=== PATIENT | female | born 1950 | race Caucasian/White ===

== ENCOUNTER 2017-09-23 08:20 | Day surgery (SDC) | payer MEDICARE, BC ==
[2017-09-23] MEDS ORDERED: Midazolam 1 MG/ML 2 ML SDV ONE (08:59)
[2017-09-23] MEDS ORDERED: fentaNYL 100 MCG/2 ML SDV ONE (08:59)
[2017-09-23] MEDS ORDERED: Propofol 200 MG/20 ML SDV ONE (08:59)
[2017-09-23] MEDS ORDERED: Lactated Ringers 1,000 ML IV SCH (09:30)
--- NOTE | 2017-09-23 11:40 | OR ---
DATE OF PROCEDURE: 09/23/2017 PREOPERATIVE DIAGNOSIS: Colon cancer screening. POSTOPERATIVE DIAGNOSES: Diverticulosis, small angiodysplasia, hemorrhoids. PROCEDURE PERFORMED: Colonoscopy to the cecum. ANESTHESIA: IV anesthesia with monitored anesthesia care. INDICATION: This 67-year-old white female is referred for a colonoscopy. She says her last colonoscopic exam was done about 20 years ago. Additionally, she states she has noticed some blood in her stool. I counseled her for the procedure including risks and alternatives, and she gave her informed consent to proceed. DESCRIPTION OF PROCEDURE: The patient was placed in the left lateral decubitus position. IV anesthesia was administered by the Anesthesia Service. Time-out was held. A rectal exam was performed, which was unremarkable. The flexible video Olympus colonoscope was introduced through her anus, up her rectum, out her colon, all way to the cecum. En route, we saw a few scattered left-sided diverticula. There was no bleeding or inflammation associated with them. Also some small vascular lesions which were not bleeding. Once the cecum was reached, the scope was slowly withdrawn, examining the mucosa throughout. No additional mucosal abnormalities were noted. The scope was retroflexed in the rectum with the distal rectum showing some hemorrhoids; otherwise, unremarkable. The scope was straightened and removed. She tolerated the procedure well. Grzegorz Marcus MD /[id number]
== END 2017-09-23 11:50 | disposition home or self-care (01) ==
LOC: JP.SDS 08:20
PROVIDERS: ATTEND Surgery
DX: K92.1 Melena (principal); R10.30 Lower abdominal pain, unspecified; R19.4 Change in bowel habit; K57.30 Diverticulosis of large intestine without perforation or abscess without bleeding; K55.20 Angiodysplasia of colon without hemorrhage; K64.9 Unspecified hemorrhoids; J45.909 Unspecified asthma, uncomplicated; Z91.018 Allergy to other foods; Z88.7 Allergy status to serum and vaccine
CPT/HCPCS: 45378; J2250; J2704; J3010; J7120

== ENCOUNTER 2020-01-25 20:21 | Emergency (ER) | payer BC, MEDICARE ==
--- NOTE | 2020-01-25 21:06 | EDM.PDOC ---
ED HPI GENERAL MEDICAL PROBLEM - General Chief Complaint: Neurological Problem Stated Complaint: POSSIBLE STROKE Time Seen by Provider: 01/25/20 20:53 Source of Information: Reports: Patient, Family, RN Notes Reviewed History Limitations: Reports: No Limitations - History of Present Illness INITIAL COMMENTS - FREE TEXT/NARRATIVE: Anca presents today with complaints of feeling like she could not get her words out and make sense with wavy vision for 60 minutes at 1730. She states she went out to do her chores with her horses to see if it would get better. The sensation did not go away so she came to the emergency room. She states she did not take any medications for her symptoms. She denies fever, chills, nausea, vomiting, change in bowel/bladder or other concerns. Upon arrival to emergency room, symptoms resolved, no abnormal speech, vision or gait. NIH 0 denies pain Pain Score (Numeric/FACES): 0 - Related Data Allergies Allergy/AdvReac Type Severity Reaction Status Date / Time strawberry Allergy Hives Verified 01/25/20 20:35 flu vaccine Allergy Muscle Uncoded 01/25/20 20:35 Weakness Home Meds: Home Meds Adalimumab [Humira Crohn's] 40 mg SQ Q14D 09/21/17 [History] Ibuprofen [Advil] 400 mg PO Q6H PRN 09/21/17 [History] Sertraline [Zoloft] 50 mg PO DAILY 09/21/17 [History] Zolpidem Tartrate [Ambien Cr] 6.25 mg PO DAILY 09/21/17 [History] predniSONE [Prednisone] 5 mg PO DAILY 01/25/20 [History] Past Medical History HEENT History: Reports: Impaired Vision Cardiovascular History: Reports: Heart Murmur, High Cholesterol Respiratory History: Reports: Asthma Gastrointestinal History: Reports: Cholelithiasis, Hemorrhoids Genitourinary History: Reports: None 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: Dysfunctional Uterine Bleeding, Fibroids, , Spontaneous Musculoskeletal History: Reports: Osteoarthritis, RA Psychiatric History: Reports: Anxiety, Depression Hematologic History: Reports: Anemia - Infectious Disease History Infectious Disease History: Reports: Measles - Past Surgical History HEENT Surgical History: Reports: None Cardiovascular Surgical History: Reports: None Respiratory Surgical History: Reports: None GI Surgical History: Reports: Appendectomy, Cholecystectomy, Colonoscopy Female Surgical History: Reports: Breast Biopsy, D&C, Hysterectomy, Salpingo- Oophorectomy Musculoskeletal Surgical History: Reports: None Social & Family History - Tobacco Use Smoking Status *Q: Never Smoker - Caffeine Use Caffeine Use: Reports: Coffee - Recreational Drug Use Recreational Drug Use: No ED ROS GENERAL - Review of Systems Review Of Systems: See Below Constitutional: Reports: No Symptoms HEENT: Reports: No Symptoms Respiratory: Reports: No Symptoms Cardiovascular: Reports: No Symptoms Endocrine: Reports: No Symptoms GI/Abdominal: Reports: No Symptoms : Reports: No Symptoms Musculoskeletal: Reports: No Symptoms Skin: Reports: No Symptoms Neurological: Reports: Trouble Speaking (trouble getting out words), Change in Speech. Denies: Confusion, Dizziness, Headache, Numbness, Paresthesia, Pre- Existing Deficit, Seizure, Syncope, Tingling, Tremors, Difficulty Walking, Weakness, Gait Disturbance Psychiatric: Reports: No Symptoms Hematologic/Lymphatic: Reports: No Symptoms ED EXAM, NEURO - Physical Exam Exam: See Below Text/Narrative:: Anca is an alert and oriented 69 year old female presenting with complaints of change in speech and vision [employer]ARING [employer] that lasted for 60 minutes from 1730 to 1830. Exam Limited By: No Limitations General Appearance: Alert, WD/WN, No Apparent Distress Eye Exam: Bilateral Eye: EOMI, Normal Inspection, PERRL Ears: Normal External Exam, Normal Canal, Hearing Grossly Normal, Normal TMs Nose: Normal Inspection, Normal Mucosa, No Blood Throat/Mouth: Normal Inspection, Normal Lips, Normal Gums, Normal Oropharynx, Normal Voice, No Airway Compromise Head Exam: Atraumatic, Normocephalic Neck: Normal Inspection, Supple, Non-Tender, Full Range of Motion. No: Lymphadenopathy (R), Lymphadenopathy (L) Respiratory/Chest: No Respiratory Distress, Lungs Clear, Normal Breath Sounds, No Accessory Muscle Use, Chest Non-Tender Cardiovascular: Normal Peripheral Pulses, Regular Rate, Rhythm, No Edema, No Gallop, No Murmur, No Rub Neurological: Alert, Normal Mood/Affect, Normal Dorsiflexion, CN II-XII Intact, Normal Plantar Flexion, Normal Gait, Normal Reflexes, No Motor/Sensory Deficits, Oriented x 3, Other (NIH 0). No: Ataxia DTR: 2+: Patella (R), Patella (L) Back Exam: Normal Inspection, Full Range of Motion. No: CVA Tenderness (R), CVA Tenderness (L) Extremities: Normal Inspection, Normal Range of Motion, Non-Tender, No Pedal Edema, Normal Capillary Refill Psychiatric: Normal Affect, Normal Mood Skin Exam: Warm, Dry, Intact, Normal Color, No Rash EKG INTERPRETATION EKG Date: 01/25/20 Time: 20:56 Rhythm: NSR Rate (Beats/Min): 79 [place]: Normal P-Wave: Present QRS: Normal ST-T: Normal QT: Normal Comparison: NA - No Prior EKG Course - Vital Signs Last Recorded V/S: Last Vital Signs Temp 36.6 C 01/25/20 20:40 Pulse 87 01/25/20 21:46 Resp 16 01/25/20 20:40 BP 144/72 H 01/25/20 21:46 Pulse Ox 98 01/25/20 20:40 - Orders/Labs/Meds Orders: Active Orders 24 hr Category Date Time Status EKG Documentation Completion [RC] ASDIRECTED Care 01/25/20 20:54 Active EKG 12 Lead [EK] Routine Ther 01/25/20 20:54 Ordered Labs: Laboratory Tests 01/25/20 01/25/20 01/25/20 Range/Units 21:20 21:20 21:20 WBC 8.4 (4.5-11.0) K/uL RBC 4.39 (3.30-5.50) M/uL Hgb 13.5 (12.0-15.0) g/dL Hct 41.3 (36.0-48.0) % MCV 94 (80-98) fL MCH 31 (27-31) pg MCHC 33 (32-36) % Plt Count 230 (150-400) K/uL Neut % (Auto) 57 (36-66) % Lymph % (Auto) 33 (24-44) % Martin % (Auto) 9 H (2-6) % Eos % (Auto) 1 L (2-4) % Baso % (Auto) 1 (0-1) % PT 10.6 (9.5-12.0) sec INR 0.97 (0.80-1.20) APTT 25.0 L (27.0-36.0) sec Sodium 138 L (140-148) mmol/L Potassium 3.4 L (3.6-5.2) mmol/L Chloride 103 (100-108) mmol/L Carbon Dioxide 26 (21-32) mmol/L Anion Gap 12.4 (5.0-14.0) mmol/L BUN 19 H (7-18) mg/dL Creatinine 1.1 H (0.6-1.0) mg/dL Est Cr Clr Drug Dosing 48.26 mL/min Estimated GFR (MDRD) 50 L (>60) Glucose 107 H (74-106) mg/dL Calcium 9.2 (8.5-10.1) mg/dL Troponin I (0.000-0.056) ng/mL TSH, Ultra Sensitive 1.716 (0.358-3.740) uIU/mL Urine Color (YELLOW) Urine Appearance (CLEAR) Urine pH (5.0-8.0) Ur Specific Lackey (1.008-1.030) Urine Protein (NEGATIVE) mg/dL Urine Glucose (UA) (NEGATIVE) mg/dL Urine Ketones (NEGATIVE) mg/dL Urine Occult Blood (NEGATIVE) Urine Nitrite (NEGATIVE) Urine Bilirubin (NEGATIVE) Urine Urobilinogen (0.2-1.0) EU/dL Ur Leukocyte Esterase (NEGATIVE) Urine RBC (0-5) Urine WBC (0-5) Ur Epithelial Cells Urine Bacteria 01/25/20 01/25/20 Range/Units 21:20 21:29 WBC (4.5-11.0) K/uL RBC (3.30-5.50) M/uL Hgb (12.0-15.0) g/dL Hct (36.0-48.0) % MCV (80-98) fL MCH (27-31) pg MCHC (32-36) % Plt Count (150-400) K/uL Neut % (Auto) (36-66) % Lymph % (Auto) (24-44) % Martin % (Auto) (2-6) % Eos % (Auto) (2-4) % Baso % (Auto) (0-1) % PT (9.5-12.0) sec INR (0.80-1.20) APTT (27.0-36.0) sec Sodium (140-148) mmol/L Potassium (3.6-5.2) mmol/L Chloride (100-108) mmol/L Carbon Dioxide (21-32) mmol/L Anion Gap (5.0-14.0) mmol/L BUN (7-18) mg/dL Creatinine (0.6-1.0) mg/dL Est Cr Clr Drug Dosing mL/min Estimated GFR (MDRD) (>60) Glucose (74-106) mg/dL Calcium (8.5-10.1) mg/dL Troponin I < 0.017 (0.000-0.056) ng/mL TSH, Ultra Sensitive (0.358-3.740) uIU/mL Urine Color Yellow (YELLOW) Urine Appearance Clear (CLEAR) Urine pH 5.0 (5.0-8.0) Ur Specific Lackey 1.025 (1.008-1.030) Urine Protein Negative (NEGATIVE) mg/dL Urine Glucose (UA) Negative (NEGATIVE) mg/dL Urine Ketones Negative (NEGATIVE) mg/dL Urine Occult Blood Negative (NEGATIVE) Urine Nitrite Negative (NEGATIVE) Urine Bilirubin Negative (NEGATIVE) Urine Urobilinogen 0.2 (0.2-1.0) EU/dL Ur Leukocyte Esterase Negative (NEGATIVE) Urine RBC Not seen (0-5) Urine WBC 0-5 (0-5) Ur Epithelial Cells Few Urine Bacteria Not seen Patient lab work reviewed, no acute findings. Na 138 K 3.4 GFR 50 Creat 1.1 dehydration, hyponatremia, hypokalemia, possible TIA Strong family history of CVA - Radiology Interpretation Free Text/Narrative:: Head CT without contrast negative - Re-Assessments/Exams Free Text/Narrative Re-Assessment/Exam: 01/25/20 22:08 Patient lab work, CT reviewed with her and her daughter. All her questions were answered, she can follow up with her primary in 7 to 10 days. Departure - Departure Time of Disposition: 22:09 Disposition: Home, Self-Care 01 Condition: Good Clinical Impression: TIA (transient ischemic attack), Hypokalemia, Hyponatremia, CKD (chronic kidney disease) - Discharge Information *PRESCRIPTION DRUG MONITORING PROGRAM REVIEWED*: No *COPY OF PRESCRIPTION DRUG MONITORING REPORT IN PATIENT AGNES: No Instructions: Transient Ischemic Attack, [id number] Referrals: Areli Gongora PA [Primary Care Provider] - Forms: ED Department Discharge Additional Instructions: You have been evaluated and treated for TIA, CKD most likely related to long- term medication use of humira. CT scan of head without contrast showed no acute findings. EKG showed no acute findings. CBC, troponin normal Sodium 138 Potassium 3.4 GRF 50 Creat 1.1 Drink plenty of water to stay hydrated, increase potassium in diet. Take Aspirin 81mg by mouth daily. Follow up with your primary for repeat renal function test, lipids or any other labs, review/need of MRI and follow up with neurology if indicated. Return to emergency room for any worsening, issues or concerns. Sepsis Event Note (ED) - Evaluation Sepsis Screening Result: No Definite Risk - Focused Exam Vital Signs: Vital Signs Temp Pulse Resp BP Pulse Ox 01/25/20 21:46 87 144/72 H 01/25/20 20:40 36.6 C 92 16 131/74 98 01/25/20 20:30 36.6 C 92 16 131/74 98 - My Orders Last 24 Hours: My Active Orders 01/25/20 20:54 EKG Documentation Completion [RC] ASDIRECTED EKG 12 Lead [EK] Routine - Assessment/Plan Last 24 Hours: My Active Orders 01/25/20 20:54 EKG Documentation Completion [RC] ASDIRECTED EKG 12 Lead [EK] Routine Assessment:: TIA (transient ischemic attack) Hyopkalemia Hyponatremia CKD Plan: Patient evaluated and treated for TIA, CKD most likely related to long-term medication use of humira. CT scan of head without contrast showed no acute findings. EKG showed no acute findings. CBC, troponin normal Sodium 138 Potassium 3.4 GRF 50 Creat 1.1 Drink plenty of water to stay hydrated, increase potassium in diet. Take Aspirin 81mg by mouth daily. Follow up with your primary for repeat renal function test, lipids or any other labs, review/need of MRI and follow up with neurology if indicated. Return to emergency room for any worsening, issues or concerns.
--- NOTE | 2020-01-25 21:27 | CRLCT ---
INDICATION: Weakness, difficulty with speech TECHNIQUE: CT head without contrast. COMPARISON: None FINDINGS: CSF spaces: Within normal limits for age. Brain parenchyma: The rand-white differentiation is normal. No sign of mass, hemorrhage, or midline shift. Skull base and calvarium: The visualized paranasal sinuses and mastoid air cells demonstrate no acute or significant findings. The visualized orbits are grossly unremarkable. No skull fractures. IMPRESSION: Unremarkable noncontrast head CT. Dictated by Matheus Godoy MD @ 01/25/2020 9:25:19 PM Please note that all CT scans at this facility use dose modulation, iterative reconstruction, and/or weight-based dosing when appropriate to reduce radiation dose to as low as reasonably achievable. Dictated by: Matheus Godoy MD @ 01/25/2020 21:25:23 (Electronically Signed)
== END 2020-01-25 22:22 | disposition home or self-care (01) ==
LOC: JP.ED 20:21
DX: G45.9 Transient cerebral ischemic attack, unspecified (principal); E87.6 Hypokalemia; E87.1 Hypo-osmolality and hyponatremia; E86.0 Dehydration; N18.9 Chronic kidney disease, unspecified; J45.909 Unspecified asthma, uncomplicated; F41.9 Anxiety disorder, unspecified; F32.9 Major depressive disorder, single episode, unspecified; Z88.7 Allergy status to serum and vaccine; Z91.018 Allergy to other foods; Z90.49 Acquired absence of other specified parts of digestive tract; Z90.710 Acquired absence of both cervix and uterus; Z79.899 Other long term (current) drug therapy
CPT/HCPCS: 36415; 70450; 80048; 81001; 84443; 84484; 85025; 85610; 85730; 93005; 99285-25

== ENCOUNTER 2025-04-01 16:18 | Emergency (ER) | payer MEDICARE ==
[2025-04-01] MEDS: Ondansetron 4 MG Tab.DIS PO ONE (18:27)
[2025-04-01 18:31] LABS: APPEARANCE,URINE CLOUDY (CLEAR); GLUCOSE,URINE NEGATIVE (NEGATIVE); OCCULT BLOOD,URINE NEGATIVE (NEGATIVE)
[2025-04-01 18:37] LABS: BASOPHILS ABSOLUTE AUTO 0.05 K/uL (0.00-0.10); BASOPHILS PERCENT AUTO 0.7 % (0.1-1.3); EOSINOPHILS PERCENT AUTO 0.3 % (0.0-5.4); IMMATURE GRAN ABSOLUTE AUTO 0.03 K/uL (0.00-0.23); IMMATURE GRAN PERCENT AUTO 0.4 % (0.0-0.7); LYMPHOCYTES ABSOLUTE AUTO 1.60 K/uL (0.8-3.3); LYMPHOCYTES PERCENT AUTO 23.3 % (11.4-47.7); MONOCYTES ABSOLUTE AUTO 0.53 K/uL (0.20-0.90); MONOCYTES PERCENT AUTO 7.7 % (3.3-12.6); NEUTROPHILS ABSOLUTE AUTO 4.63 K/uL (1.0-7.6); NEUTROPHILS PERCENT AUTO 67.6 % (40.0-78.1); PLATELET COUNT,PLT 188 K/uL (130-375); RED BLOOD CELL COUNT 4.18 M/uL (3.77-5.24); WHITE BLOOD CELL COUNT,WBC 6.9 K/uL (3.2-11.0)
[2025-04-01 18:38] LABS: AMPHETAMINES SCREEN, URINE NEGATIVE (NEGATIVE); METHADONE SCREEN, URINE NEGATIVE (NEGATIVE); METHAMPHETAMINES SCREEN, URINE NEGATIVE (NEGATIVE); OXYCODONE SCREEN,URINE NEGATIVE (NEGATIVE); PROPOXYPHENE SCREEN,URINE NEGATIVE (NEGATIVE); THC SCREEN,URINE 50 NG/ML NEGATIVE (NEGATIVE)
[2025-04-01 18:39] LABS: EOSINOPHILS ABSOLUTE AUTO 0.02 K/uL (0.00-0.40)
[2025-04-01 18:58] LABS: A/G RATIO 1.2 (1.2-2.2); ALANINE AMINOTRANSFERASE,ALT 19 U/L (12-78); ASPARTATE AMNIOTRANSFERASE,AST 17 U/L (15-37); BILIRUBIN TOTAL 0.6 mg/dL (0.2-1.0); BLOOD UREA NITROGEN,BUN 19 mg/dL (7-18); CARBON DIOXIDE,CO2 25 mmol/L (21-32); CHLORIDE,CL 100 mmol/L (100-108); CREATININE 0.8 mg/dL (0.6-1.0); EST CRCL DRUG DOSING (CG) 61.81 mL/min; ESTIMATED GFR 78 mL/min (>60); GLUCOSE RANDOM 121 mg/dL (74-106); POTASSIUM,K 3.9 mmol/L (3.6-5.2); PROTEIN TOTAL,TP 6.4 g/dL (6.4-8.2); SODIUM,NA 134 mmol/L (140-148)
== END 2025-04-01 20:10 | disposition home or self-care (01) ==
LOC: JP.ED 16:18
DX: H81.10 Benign paroxysmal vertigo, unspecified ear (principal); E78.00 Pure hypercholesterolemia, unspecified; Z88.7 Allergy status to serum and vaccine; Z91.018 Allergy to other foods; Z79.82 Long term (current) use of aspirin; Z79.899 Other long term (current) drug therapy; Z86.73 Personal history of transient ischemic attack (TIA), and cerebral infarction without residual deficits
CPT/HCPCS: 36415; 70450; 80053; 80305; 81003; 85025; 86140; 99284; A9270; Q0162